=== PATIENT | female | born 1970 | race Caucasian/White ===

== ENCOUNTER 2021-08-06 10:45 | Inpatient (IN) ==
[~2021-08-06 10:45] MED LIST: ASPIRIN 325 MG TABLET PO ONE; DEXTROSE 5% NACL 0.45% 1,000 ML IV SCH; DIAZEPAM 5 MG TABLET PO ONE; MAGNESIUM SULF RIDER 2 GM/50 ML PREMIX IV PRN; diphenhydrAMINE CAP 50 MG CAPSULE PO ONE
[2021-08-06 11:48] LABS: Basophils # 0.1 10*3/uL (0.0-0.2); Basophils % 0.9 % (0.0-0.8); Eosinophils # 0.2 10*3/uL (0.0-0.87); Eosinophils % 3.4 % (0.00-10.9); Hematocrit 40.1 VOL% (35.7-47.0); Hemoglobin 12.4 GM/DL (12.0-16.0); Immature Granulocytes % 0.2 %; Immature Granulocytes Absolute 0.01 #; Lymphocytes # 2.1 10*3/uL (1.4-4.0); Lymphocytes % 38.2 % (21.3-54.2); Mean Corpuscular HGB Conc 30.9 GM/DL (32-36); Mean Corpuscular Volume 79.2 FL (87-102); Mean Platelet Volume 10.2 FL (9.6-12.0); Monocytes % 8.6 % (1.7-12.7); Neutrophils % 48.7 % (38.7-73.9); Platelet Count 218 T/CUMM (130-400); Red Blood Count 5.06 MC/CUMM (3.8-5.5); Red Cell Distribution Width 15.6 % (9.3-17.3); White Blood Count 5.6 T/CUMM (4-12)
[2021-08-06] MEDS ORDERED: HEPARIN/NACL 0.9% 2 UNITS/ML 2,000 UNIT/1,000 ML BAG IV ONE (12:01)
[2021-08-06] MEDS ORDERED: LIDOCAINE 1% 20 ML VIAL ONE (12:01)
[2021-08-06 12:02] LABS: Calcium 8.6 MG/DL (8.5-10.1); Osmolality,Calculated 276.7 MOS/KG (273-304); Potassium 3.2 MMOL/L (3.5-5.1)
[2021-08-06] MEDS ORDERED: POTASSIUM CHLORIDE RIDER 0 MEQ/0 ML PREMIX IV ONE (12:11)
[2021-08-06] MEDS ORDERED: DIAZEPAM 5 MG TABLET ONE (12:11)
[2021-08-06] MEDS ORDERED: diphenhydrAMINE CAP 50 MG CAPSULE ONE (12:12)
[2021-08-06] MEDS ORDERED: ASPIRIN 325 MG TABLET ONE (12:12)
[2021-08-06] MEDS ORDERED: POTASSIUM CHLORIDE RIDER 10 MEQ/100 ML PREMIX IV ONE ×2 (12:14→15:11)
[2021-08-06 12:22] LABS: Platelet Estimate Adequate
[2021-08-06 12:24] LABS: Hypochromia 1+
[2021-08-06] MEDS: POTASSIUM CHLORIDE RIDER 10 MEQ/100 ML PREMIX IV PRN ×2 (12:32→15:18)
[2021-08-06] MEDS ORDERED: MIDAZOLAM 2 MG/2 ML VIAL ONE ×3 (13:18→13:59)
[2021-08-06] MEDS ORDERED: LIDOCAINE 1%/EPI INJ 20 ML VIAL ONE (13:18)
[2021-08-06] MEDS ORDERED: fentaNYL 100 MCG/2 ML VIAL ONE ×2 (13:18→13:59)
[2021-08-06] MEDS ORDERED: FUROSEMIDE 20 MG TABLET PO PRN (14:11)
[2021-08-06] MEDS ORDERED: NITROGLYCERIN SL 0.4 MG TABLET SL PRN (14:25)
[2021-08-06] MEDS ORDERED: BISACODYL 5 MG TABLET PO PRN (15:22)
[2021-08-06] MEDS ORDERED: diphenhydrAMINE CAP 25 MG CAPSULE PO PRN (16:40)
[2021-08-06] MEDS ORDERED: LORazepam 1 MG TABLET PO PRN (16:57)
[2021-08-06] MEDS: MORPHINE 2 MG/1 ML SYRINGE IV PRN ×2 (19:00→22:36)
[2021-08-06] MEDS: ASCORBIC ACID 500 MG TABLET PO SCH (20:59)
[2021-08-06] MEDS: ENOXAPARIN 100 MG/ML SYRINGE SUBCUT SCH (20:59)
[2021-08-06] MEDS: oxyCODONE/ACETAMINOPHEN 5-325 MG TABLET PO SCH (20:59)
[2021-08-06] MEDS: hydrOXYzine HCL 25 MG TABLET PO SCH (20:59)
[2021-08-06] MEDS: tiZANidine 4 MG TABLET PO SCH (20:59)
[2021-08-06] MEDS: QUEtiapine 100 MG TABLET PO SCH (20:59)
[2021-08-06] MEDS: PREGABALIN 75 MG CAPSULE PO SCH (21:00)
[2021-08-06] MEDS: rOPINIRole 1 MG TABLET PO SCH (21:00)
[2021-08-06] MEDS: DOCUSATE SODIUM 100 MG CAPSULE PO SCH (21:00)
[2021-08-06] MEDS ORDERED: METOPROLOL TARTRATE 25 MG TABLET PO SCH (21:00)
[2021-08-06] MEDS: PROPRANOLOL 40 MG TABLET PO SCH (21:00)
[2021-08-06] MEDS ORDERED: INFLUENZA VIRUS VACCINE 0.5 ML SYRINGE IM ONE (21:00)
[2021-08-06] MEDS: ZINC GLUCONATE 50 MG TABLET PO SCH (21:00)
[2021-08-06] MEDS: SERTRALINE 100 MG TABLET PO SCH (21:04)
[2021-08-06] MEDS: ATORVASTATIN 40 MG TABLET PO SCH (21:11)
[2021-08-06] MEDS: TAPENTADOL 150 MG PO SCH (21:11)
[2021-08-07] MEDS: MORPHINE 2 MG/1 ML SYRINGE IV PRN ×4 (05:34→23:25)
[2021-08-07 05:47] LABS: Basophils % 0.7 % (0.0-0.8); Eosinophils # 0.3 10*3/uL (0.0-0.87); Eosinophils % 5.4 % (0.00-10.9); Hematocrit 34.3 VOL% (35.7-47.0); Hemoglobin 10.7 GM/DL (12.0-16.0); Immature Granulocytes % 0.4 %; Immature Granulocytes Absolute 0.02 #; Lymphocytes # 2.9 10*3/uL (1.4-4.0); Lymphocytes % 52.3 % (21.3-54.2); Mean Corpuscular HGB Conc 31.2 GM/DL (32-36); Mean Platelet Volume 10.7 FL (9.6-12.0); Monocytes % 9.1 % (1.7-12.7); Neutrophils % 32.1 % (38.7-73.9); Platelet Count 178 T/CUMM (130-400); Red Blood Count 4.29 MC/CUMM (3.8-5.5); Red Cell Distribution Width 15.5 % (9.3-17.3); White Blood Count 5.6 T/CUMM (4-12)
[2021-08-07 06:13] LABS: Calcium 8.6 MG/DL (8.5-10.1); Eosinophils 1 % (0-10); Hypochromia Slight; Lymphocytes 48 % (20-55); Microcytosis Slight; Osmolality,Calculated 276.7 MOS/KG (273-304); Platelet Estimate Normal; Potassium 3.5 MMOL/L (3.5-5.1); Segmented Neutrophils 43 % (50-85); Total Cells Counted 100
[2021-08-07] MEDS ORDERED: DEXTROSE 50% 25 GM/50 ML VIAL IV PRN (08:53)
[2021-08-07] MEDS ORDERED: GLUCAGON 1 MG VIAL IM PRN (08:53)
[2021-08-07] MEDS ORDERED: ASCORBIC ACID 500 MG TABLET PO SCH (09:00)
[2021-08-07] MEDS ORDERED: DEXTROSE 10% 250 ML IV PRN (09:03)
[2021-08-07 10:05] LABS: Alanine Aminotransferase 26 U/L (13-56); Alkaline Phosphatase 116 U/L (45-117); Aspartate Amino Transferase 20 U/L (0-37); Bilirubin,Total < 0.39 MG/DL (0.20-1.00); Blood Urea Nitrogen 14 MG/DL (7-18); Calcium 8.6 MG/DL (8.5-10.1); Carbon Dioxide 28 MMOL/L (21-32); Estimated Glom Filtration Rate 106 ML/MIN; Glucose 89 MG/DL (74-106); Osmolality,Calculated 274.7 MOS/KG (273-304); Potassium 3.4 MMOL/L (3.5-5.1); Sodium 138 MMOL/L (136-145); Total Protein 6.7 G/DL (6.4-8.2)
[2021-08-07 10:39] LABS: ABG Base Excess 2.7 MMOL/L (-2.5-2.5); ABG HCO3 26.9 MMOL/L (20-26); ABG Oxygen Saturation 98.8 % (95-100); ABG PCO2 51.5 MM HG (35-48); ABG TCO2 26.2 MMOL/L (23-27); Allen Test Positive
[2021-08-07] MEDS: ENOXAPARIN 100 MG/ML SYRINGE SUBCUT SCH (10:50)
[2021-08-07] MEDS: ASCORBIC ACID 500 MG TABLET PO SCH ×2 (10:55→21:10)
[2021-08-07] MEDS: ASPIRIN CHEW 81 MG TABLET PO SCH (10:56)
[2021-08-07] MEDS: hydrOXYzine HCL 25 MG TABLET PO SCH ×3 (10:56→21:12)
[2021-08-07] MEDS: CHOLECALCIFEROL 5,000 UNIT TABLET PO SCH (10:57)
[2021-08-07] MEDS: DOCUSATE SODIUM 100 MG CAPSULE PO SCH ×2 (10:57→21:12)
[2021-08-07] MEDS: PANTOPRAZOLE 40 MG TABLET PO SCH (10:57)
[2021-08-07] MEDS: PREGABALIN 75 MG CAPSULE PO SCH ×3 (10:58→21:12)
[2021-08-07] MEDS: SERTRALINE 100 MG TABLET PO SCH ×2 (10:58→21:13)
[2021-08-07] MEDS: oxyCODONE/ACETAMINOPHEN 5-325 MG TABLET PO SCH ×2 (10:59→21:14)
[2021-08-07] MEDS: tiZANidine 4 MG TABLET PO SCH ×2 (11:00→21:12)
[2021-08-07] MEDS: TAPENTADOL 150 MG PO SCH ×2 (11:01→21:14)
[2021-08-07] MEDS: CHLORHEXIDINE 0.12% ORAL RINSE 60 ML BOTTLE SWISH/SPIT SCH ×2 (11:02→21:14)
[2021-08-07] MEDS: CHLORHEXIDINE 4% SOLN 118 ML BOTTLE TOP SCH ×2 (11:03→18:41)
[2021-08-07] MEDS ORDERED: POTASSIUM BICARB EFFERVESCENT 20 MEQ TAB.EFF PO PRN ×2 (13:47→15:39)
[2021-08-07] MEDS: IPRATROPIUM 500 MCG/2.5 ML NEB RESP TX SCH ×2 (14:16→20:27)
[2021-08-07] MEDS ORDERED: DIAZEPAM 5 MG TABLET PO ONE (16:45)
[2021-08-07] MEDS: rOPINIRole 1 MG TABLET PO SCH (21:10)
[2021-08-07] MEDS: ATORVASTATIN 40 MG TABLET PO SCH (21:11)
[2021-08-07] MEDS: PROPRANOLOL 40 MG TABLET PO SCH (21:11)
[2021-08-07] MEDS: ZINC GLUCONATE 50 MG TABLET PO SCH (21:11)
[2021-08-07] MEDS: QUEtiapine 100 MG TABLET PO SCH (21:12)
[2021-08-08] MEDS ORDERED: PAPAVERINE 60 MG/2 ML VIAL ONE (04:19)
[2021-08-08] MEDS ORDERED: VANCOMYCIN 1,000 MG VIAL ONE (04:20)
[2021-08-08] MEDS ORDERED: VANCOMYCIN 500 MG VIAL ONE (04:20)
[2021-08-08] MEDS: CHLORHEXIDINE 4% SOLN 118 ML BOTTLE TOP SCH (04:45)
[2021-08-08] MEDS ORDERED: CEFUROXIME INJ 1,500 MG in SODIUM CHLORIDE 0.9% 100 ML IV ONE (05:00)
[2021-08-08] MEDS ORDERED: DIAZEPAM 5 MG TABLET PO ONE (06:00)
[2021-08-08] MEDS ORDERED: AMINOCAPROIC ACID 5,000 MG/20 ML VIAL ONE (06:05)
[2021-08-08] MEDS ORDERED: LACTATED RINGERS 1,000 ML IV ONE (06:05)
[2021-08-08] MEDS ORDERED: VECURONIUM 10 MG VIAL IV ONE ×2 (06:05→09:16)
[2021-08-08] MEDS ORDERED: SODIUM CHLORIDE 0.9% 250 ML IV ONE (06:05)
[2021-08-08] MEDS ORDERED: SUFentanil 250 MCG/5 ML AMP ONE ×2 (06:05→07:57)
[2021-08-08] MEDS ORDERED: MIDAZOLAM 10 MG/2 ML VIAL ONE ×4 (06:05→09:16)
[2021-08-08] MEDS ORDERED: LIDOCAINE 2% 5 ML VIAL ONE ×2 (06:05→10:37)
[2021-08-08] MEDS ORDERED: SODIUM CHLORIDE 0.9% 1,000 ML IV ONE (06:05)
[2021-08-08] MEDS ORDERED: HEPARIN/NACL 0.9% 2 UNITS/ML 1,000 UNIT/500 ML BAG IV ONE (06:05)
[2021-08-08] MEDS ORDERED: MINERAL OIL/PETROLATUM OPH OINT 3.5 GM TUBE ONE (06:05)
[2021-08-08] MEDS ORDERED: CALCIUM CHLORIDE 1,000 MG/10 ML VIAL IV ONE ×2 (06:05→10:21)
[2021-08-08 07:40] LABS: ABG Base Excess 2.4 MMOL/L (-2.5-2.5); ABG HCO3 26.5 MMOL/L (20-26); ABG Oxygen Saturation 99.9 % (95-100); ABG PCO2 43.2 MM HG (35-48); ABG PH 7.409 (7.35-7.45); ABG TCO2 24.7 MMOL/L (23-27); Glucose Heart Surgery 93 MG/DL (74-106); Hematocrit Heart Surgery 31.8 PERCENT (37-47); Hemoglobin Heart Surgery 10.3 G/DL (12.0-16.0); Ionized Calcium Arterial 1.18 MMOL/L (1.21-1.46); PCO2 Patient Temp Arterial 43.2 MMHG; PH Patient Temp Arterial 7.409; Patient Temperature 37 CELCIUS; Potassium Heart/CVR 4.2 MMOL/L (3.5-5.1); Sodium Heart/CVR 140 MMOL/L (135-145)
[2021-08-08 07:45] LABS: Bilirubin,Urine Negative (Negative); Blood, Urine Negative (Negative); Calcium Oxalate Crystals,Urine Occasional /HPF (Few); Glucose,Urine (UA) Negative (Negative); Hyaline Casts,Urine 1 /LPF (0-3); Ketones,Urine Negative (Negative); Mucus,Urine Moderate /LPF (Occasional); Nitrite,Urine Negative (Negative); Protein,Urine Negative; RBC,Urine 1 /HPF (0-4); Squamous Epithelial Cell,Urine Occasional /HPF (0-10); Urine Appearance CLEAR (Clear); Urine Color Yellow (Yellow); Urine Urobilinogen < 2.0 EU/DL (<2.0)
[2021-08-08] MEDS ORDERED: SUCCINYLCHOLINE 200 MG/10 ML VIAL ONE (07:48)
[2021-08-08] MEDS ORDERED: GLYCOPYRROLATE 0.4 MG/2 ML VIAL ONE (07:48)
[2021-08-08] MEDS: IPRATROPIUM 500 MCG/2.5 ML NEB RESP TX SCH ×2 (08:07→19:28)
[2021-08-08] MEDS ORDERED: PHENYLEPHRINE 10 MG/1 ML VIAL IV ONE (08:49)
[2021-08-08] MEDS ORDERED: diphenhydrAMINE 50 MG/1 ML VIAL ONE (09:16)
[2021-08-08 09:19] LABS: Hematocrit Heart Surgery 22.2 PERCENT (37-47); Hemoglobin Heart Surgery 7.1 G/DL (12.0-16.0); PCO2 Patient Temp Venous 38.6 MM HG; PH Patient Temp Venous 7.473; PO2 Patient Temp Venous 32.3 MM HG; Potassium Heart/CVR 4.7 MMOL/L (3.5-5.1); VBG Base Excess 4.7 MEQ/L (0-4); VBG HCO3 28.4 MEQ/L (24-28); VBG Oxygen Saturation 76.5 %; VBG PCO2 44.6 MMHG (41-51); VBG PH 7.429; VBG PO2 39.8 MMHG (17-40); VBG Total CO2 27.9 MMOL/L
[2021-08-08 09:48] LABS: Hematocrit Heart Surgery 24.6 PERCENT (37-47); Hemoglobin Heart Surgery 7.9 G/DL (12.0-16.0); PCO2 Patient Temp Venous 37.7 MM HG; PH Patient Temp Venous 7.465; PO2 Patient Temp Venous 33.5 MM HG; Potassium Heart/CVR 3.9 MMOL/L (3.5-5.1); VBG Base Excess 3.5 MEQ/L (0-4); VBG HCO3 27.3 MEQ/L (24-28); VBG Oxygen Saturation 77.2 %; VBG PCO2 43.5 MMHG (41-51); VBG PH 7.421; VBG PO2 41.2 MMHG (17-40); VBG Total CO2 26.5 MMOL/L
[2021-08-08] MEDS ORDERED: FAMOTIDINE 20 MG/2 ML VIAL IV ONE (09:52)
[2021-08-08] MEDS ORDERED: DOBUTamine 500 MG/250 ML PREMIX IV ONE ×2 (10:14→11:11)
[2021-08-08] MEDS ORDERED: THROMBIN TOPICAL (RECOMBINANT) 5,000 UNIT VIAL TOP ONE (10:34)
[2021-08-08] MEDS ORDERED: methylPREDNISolone SOD SUC 1,000 MG/8 ML VIAL ONE (10:37)
[2021-08-08] MEDS ORDERED: PROTAMINE SULFATE 250 MG/25 ML VIAL IV ONE (10:37)
[2021-08-08] MEDS ORDERED: MAGNESIUM SULFATE 5 GM/10 ML VIAL IV ONE (10:37)
[2021-08-08] MEDS ORDERED: ALBUMIN 25% 25 GM/100 ML VIAL IV ONE (10:37)
[2021-08-08] MEDS ORDERED: DEXTROSE 5% KCL 20 MEQ 20 MEQ/1,000 ML BAG IV ONE (10:37)
[2021-08-08] MEDS ORDERED: MANNITOL 100 GM/500 ML BAG IV ONE (10:37)
[2021-08-08 10:38] LABS: ABG Base Excess 0.4 MMOL/L (-2.5-2.5); ABG HCO3 24.3 MMOL/L (20-26); ABG PCO2 35.9 MM HG (35-48); ABG PH 7.449 (7.35-7.45); ABG TCO2 25.4 MMOL/L (23-27); Glucose Heart Surgery 117 MG/DL (74-106); Hemoglobin Heart Surgery 8.4 G/DL (12.0-16.0); Ionized Calcium Arterial 1.46 MMOL/L (1.21-1.46); PCO2 Patient Temp Arterial 35.9 MMHG; PH Patient Temp Arterial 7.449; Patient Temperature 37 CELCIUS; Potassium Heart/CVR 3.3 MMOL/L (3.5-5.1); Sodium Heart/CVR 135 MMOL/L (135-145)
[2021-08-08] MEDS ORDERED: FUROSEMIDE 20 MG/2 ML VIAL ONE (10:38)
[2021-08-08] MEDS ORDERED: PROTAMINE SULFATE 50 MG/5 ML VIAL IV ONE (10:38)
[2021-08-08] MEDS ORDERED: SODIUM BICARBONATE 50 MEQ/50 ML VIAL IV ONE (10:38)
[2021-08-08] MEDS ORDERED: HEPARIN 10,000 UNIT/10 ML VIAL ONE (10:38)
[2021-08-08] MEDS ORDERED: ALBUMIN 5% 25.0 GM/500 ML VIAL IV ONE (10:39)
[2021-08-08] MEDS ORDERED: POTASSIUM CHLORIDE RIDER 20 MEQ/100 ML PREMIX IV ONE (10:39)
[2021-08-08] MEDS ORDERED: PHENYLEPHRINE DRIP 40 MG/250 ML PREMIX IV ONE (10:40)
[2021-08-08] MEDS ORDERED: PHENYLEPHRINE DRIP 40 MG/250 ML PREMIX IV PRN (11:16)
[2021-08-08] MEDS ORDERED: POTASSIUM CHLORIDE RIDER 20 MEQ/100 ML PREMIX IV PRN (11:16)
[2021-08-08] MEDS ORDERED: POTASSIUM CHLORIDE RIDER 10 MEQ/100 ML PREMIX IV PRN (11:16)
[2021-08-08] MEDS ORDERED: VECURONIUM 10 MG VIAL IV PRN ×2 (11:16)
[2021-08-08] MEDS ORDERED: MIDAZOLAM 10 MG/2 ML VIAL IV PRN (11:16)
[2021-08-08] MEDS ORDERED: ONDANSETRON 4 MG/2 ML VIAL IV PRN (11:16)
[2021-08-08] MEDS ORDERED: NITROPRUSSIDE 100 MG in DEXTROSE 5% 250 ML IV PRN (11:16)
[2021-08-08] MEDS ORDERED: ACETAMINOPHEN 650 MG SUPP RECTAL PRN (11:16)
[2021-08-08] MEDS ORDERED: CALCIUM CHLORIDE 1,000 MG/10 ML SYRINGE IV PRN (11:16)
[2021-08-08] MEDS ORDERED: INSULIN REGULAR 100 UNIT/ML IV ONE (11:16)
[2021-08-08] MEDS ORDERED: LACTATED RINGERS 250 ML IV PRN (11:16)
[2021-08-08] MEDS ORDERED: MAGNESIUM SULF RIDER 4 GM/100 ML PREMIX IV PRN (11:16)
[2021-08-08] MEDS ORDERED: MAGNESIUM SULF RIDER 2 GM/50 ML PREMIX IV PRN (11:16)
[2021-08-08] MEDS ORDERED: CHLORHEXIDINE 4% SOLN 118 ML BOTTLE TOP PRN (11:16)
[2021-08-08] MEDS ORDERED: INSULIN REGULAR 100 UNIT/ML IV PRN (11:16)
[2021-08-08] MEDS ORDERED: DEXTROSE 10% 25 GM/250 ML BAG IV PRN ×2 (11:24→11:25)
[2021-08-08] MEDS: SODIUM CHLORIDE 0.45% 1,000 ML IV SCH ×2 (11:25)
[2021-08-08] MEDS: DOBUTamine 500 MG/250 ML PREMIX IV SCH (11:25)
[2021-08-08] MEDS: LACTATED RINGERS 1,000 ML IV PRN ×3 (11:30→15:30)
[2021-08-08] MEDS ORDERED: NITROPRUSSIDE 50 MG/2 ML VIAL ONE (11:35)
[2021-08-08 12:31] LABS: Basophils % 0.3 % (0.0-0.8); Eosinophils # 0.1 10*3/uL (0.0-0.87); Eosinophils % 0.9 % (0.00-10.9); Hematocrit 29.6 VOL% (35.7-47.0); Hemoglobin 9.4 GM/DL (12.0-16.0); Immature Granulocytes % 0.5 %; Immature Granulocytes Absolute 0.04 #; Lymphocytes # 1.1 10*3/uL (1.4-4.0); Lymphocytes % 14.6 % (21.3-54.2); Mean Corpuscular HGB Conc 31.8 GM/DL (32-36); Mean Corpuscular Volume 77.9 FL (87-102); Mean Platelet Volume 10.7 FL (9.6-12.0); Monocytes % 4.3 % (1.7-12.7); Neutrophils % 79.4 % (38.7-73.9); Platelet Count 177 T/CUMM (130-400); Red Cell Distribution Width 15.2 % (9.3-17.3); White Blood Count 7.7 T/CUMM (4-12)
[2021-08-08 12:34] LABS: ABG Base Excess 1.8 MMOL/L (-2.5-2.5); ABG HCO3 24.4 MMOL/L (20-26); ABG Oxygen Saturation 98.2 % (95-100); ABG PH 7.513 (7.35-7.45); ABG PO2 123.3 MM HG (80-95); ABG TCO2 25.3 MMOL/L (23-27); Glucose Heart Surgery 121 MG/DL (74-106); Potassium Heart/CVR 3.6 MMOL/L (3.5-5.1)
[2021-08-08 12:43] LABS: INR 1.1
[2021-08-08] MEDS ORDERED: NITROGLYCERIN DRIP 50 MG/250 ML BOTTLE IV PRN (13:00)
[2021-08-08 13:06] LABS: Bilirubin,Total 0.4 MG/DL (0.20-1.00); Calcium 9.6 MG/DL (8.5-10.1); Osmolality,Calculated 278.4 MOS/KG (273-304); Potassium 3.7 MMOL/L (3.5-5.1); Total Protein 5.8 G/DL (6.4-8.2)
[2021-08-08] MEDS: MIDAZOLAM 2 MG/2 ML VIAL IV PRN ×2 (13:07→14:18)
[2021-08-08] MEDS: ALBUMIN 5% 12.5 GM/250 ML VIAL IV PRN ×2 (13:15→15:20)
[2021-08-08 13:20] LABS: CKMB % 5.2 %
[2021-08-08 13:23] LABS: ABG Base Excess 2.9 MMOL/L (-2.5-2.5); ABG Oxygen Saturation 98.9 % (95-100); ABG PCO2 37.7 MM HG (35-48); ABG PH 7.459 (7.35-7.45); ABG TCO2 24.4 MMOL/L (23-27); Glucose Heart Surgery 148 MG/DL (74-106); Hemoglobin Heart Surgery 9.7 G/DL (12.0-16.0); Potassium Heart/CVR 3.7 MMOL/L (3.5-5.1)
[2021-08-08 13:26] LABS: High Sensitive Troponin I* 1287.4 ng/L (0-54)
[2021-08-08] MEDS ORDERED: DEXMEDETOMIDINE 400 MCG in SODIUM CHLORIDE 0.9% 96 ML IV PRN (14:30)
[2021-08-08] MEDS: INSULIN REGULAR DRIP 100 ML IV SCH (14:47)
[2021-08-08] MEDS: MORPHINE 10 MG/1 ML VIAL IV PRN ×3 (15:20→22:15)
[2021-08-08] MEDS: SODIUM CHLORIDE 0.9% 1,000 ML IV SCH (15:43)
[2021-08-08] MEDS: PREGABALIN 75 MG CAPSULE PO SCH (15:44)
[2021-08-08] MEDS: hydrOXYzine HCL 25 MG TABLET PO SCH (15:44)
[2021-08-08] MEDS: ASPIRIN CHEW 81 MG TABLET PO SCH (15:44)
[2021-08-08] MEDS: CHLORHEXIDINE 0.12% ORAL RINSE 60 ML BOTTLE SWISH/SPIT SCH ×2 (15:44→21:56)
[2021-08-08] MEDS: oxyCODONE/ACETAMINOPHEN 5-325 MG TABLET PO SCH (15:44)
[2021-08-08] MEDS: DOCUSATE SODIUM 100 MG CAPSULE PO SCH (15:44)
[2021-08-08] MEDS: ASCORBIC ACID 500 MG TABLET PO SCH (15:45)
[2021-08-08] MEDS: PANTOPRAZOLE 40 MG TABLET PO SCH (15:45)
[2021-08-08] MEDS: SERTRALINE 100 MG TABLET PO SCH (15:45)
[2021-08-08] MEDS: TAPENTADOL 150 MG PO SCH (15:45)
[2021-08-08] MEDS: CHOLECALCIFEROL 5,000 UNIT TABLET PO SCH (15:45)
[2021-08-08] MEDS: tiZANidine 4 MG TABLET PO SCH (15:45)
[2021-08-08] MEDS ORDERED: FUROSEMIDE 40 MG/4 ML VIAL IV PRN (18:12)
[2021-08-08] MEDS: CEFUROXIME INJ 1,500 MG in SODIUM CHLORIDE 0.9% 100 ML IV SCH (18:22)
[2021-08-08 20:46] LABS: ABG Base Excess 2.2 MMOL/L (-2.5-2.5); ABG HCO3 26.4 MMOL/L (20-26); ABG Oxygen Saturation 98.6 % (95-100); ABG PH 7.392 (7.35-7.45); ABG TCO2 25.5 MMOL/L (23-27); Glucose Heart Surgery 171 MG/DL (74-106); Hematocrit Heart Surgery 25.7 PERCENT (37-47); Hemoglobin Heart Surgery 8.3 G/DL (12.0-16.0); Potassium Heart/CVR 4.6 MMOL/L (3.5-5.1)
[2021-08-08 21:24] LABS: High Sensitive Troponin I* 1966.1 ng/L (0-54)
[2021-08-08] MEDS: QUEtiapine 100 MG TABLET PO SCH (21:56)
[2021-08-08] MEDS: rOPINIRole 1 MG TABLET PO SCH (21:56)
[2021-08-08 23:16] LABS: ABG Base Excess 3.1 MMOL/L (-2.5-2.5); ABG HCO3 27.1 MMOL/L (20-26); ABG Oxygen Saturation 95.5 % (95-100); ABG PCO2 47.1 MM HG (35-48); ABG PO2 78.4 MM HG (80-95); ABG TCO2 26.6 MMOL/L (23-27); Glucose Heart Surgery 156 MG/DL (74-106); Hematocrit Heart Surgery 24.9 PERCENT (37-47); Potassium Heart/CVR 4.8 MMOL/L (3.5-5.1)
[2021-08-09] MEDS: MORPHINE 10 MG/1 ML VIAL IV PRN (02:10)
[2021-08-09 04:50] LABS: ABG Base Excess 3.6 MMOL/L (-2.5-2.5); ABG HCO3 27.6 MMOL/L (20-26); ABG Oxygen Saturation 95.6 % (95-100); ABG PCO2 46.8 MM HG (35-48); ABG PH 7.399 (7.35-7.45); ABG TCO2 27.1 MMOL/L (23-27); Glucose Heart Surgery 135 MG/DL (74-106); Hemoglobin Heart Surgery 7.7 G/DL (12.0-16.0); Potassium Heart/CVR 4.3 MMOL/L (3.5-5.1)
[2021-08-09 05:13] LABS: CKMB % 2.5 %
[2021-08-09 05:18] LABS: Alanine Aminotransferase 20 U/L (13-56); Alkaline Phosphatase 73 U/L (45-117); Aspartate Amino Transferase 32 U/L (0-37); Bilirubin,Direct < 0.100 MG/DL (0.0-0.20); Bilirubin,Total < 0.39 MG/DL (0.20-1.00); Blood Urea Nitrogen 10 MG/DL (7-18); Calcium 8.5 MG/DL (8.5-10.1); Carbon Dioxide 28 MMOL/L (21-32); Estimated Glom Filtration Rate 131 ML/MIN; Glucose 130 MG/DL (74-106); Osmolality,Calculated 277.5 MOS/KG (273-304); Potassium 4.3 MMOL/L (3.5-5.1); Sodium 139 MMOL/L (136-145); Total Protein 5.8 G/DL (6.4-8.2)
[2021-08-09 05:20] LABS: Basophils % 0.1 % (0.0-0.8); Hematocrit 24.6 VOL% (35.7-47.0); Hemoglobin 7.7 GM/DL (12.0-16.0); Immature Granulocytes % 0.5 %; Immature Granulocytes Absolute 0.07 #; Lymphocytes # 1.1 10*3/uL (1.4-4.0); Mean Corpuscular HGB Conc 31.3 GM/DL (32-36); Mean Corpuscular Volume 78.3 FL (87-102); Mean Platelet Volume 11.5 FL (9.6-12.0); Monocytes % 5.9 % (1.7-12.7); Neutrophils % 85.5 % (38.7-73.9); Platelet Count 194 T/CUMM (130-400); Red Blood Count 3.14 MC/CUMM (3.8-5.5); Red Cell Distribution Width 15.6 % (9.3-17.3); White Blood Count 13.5 T/CUMM (4-12)
[2021-08-09] MEDS: CEFUROXIME INJ 1,500 MG in SODIUM CHLORIDE 0.9% 100 ML IV SCH (06:51)
[2021-08-09 07:20] LABS: ABG Base Excess 6.2 MMOL/L (-2.5-2.5); ABG HCO3 30.1 MMOL/L (20-26); ABG PCO2 43.8 MM HG (35-48); ABG PH 7.454 (7.35-7.45); ABG PO2 76.7 MM HG (80-95); ABG TCO2 28.7 MMOL/L (23-27); Glucose Heart Surgery 132 MG/DL (74-106); Hematocrit Heart Surgery 24.8 PERCENT (37-47); Potassium Heart/CVR 3.8 MMOL/L (3.5-5.1)
[2021-08-09] MEDS: KETOROLAC 30 MG/1 ML VIAL IV SCH ×3 (07:30→18:45)
[2021-08-09] MEDS: IPRATROPIUM 500 MCG/2.5 ML NEB RESP TX SCH (07:38)
[2021-08-09] MEDS: HYDROmorphone 2 MG/1 ML VIAL IV PRN ×4 (08:55→21:12)
[2021-08-09] MEDS: CHLORHEXIDINE 0.12% ORAL RINSE 60 ML BOTTLE SWISH/SPIT SCH ×2 (09:07→21:16)
[2021-08-09] MEDS ORDERED: ALUMINUM/MAGNES/SIMETH MAX STR 30 ML UDCUP PO PRN (11:47)
[2021-08-09] MEDS ORDERED: DEXTROSE 50% 25 GM/50 ML VIAL IV PRN (11:47)
[2021-08-09] MEDS ORDERED: DEXTROSE 10% 250 ML BAG IV PRN (11:47)
[2021-08-09] MEDS ORDERED: MAGNESIUM SULF RIDER 4 GM/100 ML PREMIX IV PRN (11:47)
[2021-08-09] MEDS ORDERED: SODIUM CHLOR 0.45% KCL 20 MEQ 20 MEQ/1,000 ML BAG IV SCH (11:47)
[2021-08-09] MEDS ORDERED: ONDANSETRON 4 MG/2 ML VIAL IV PRN (11:47)
[2021-08-09] MEDS ORDERED: GLUCAGON 1 MG VIAL IM PRN ×2 (11:47)
[2021-08-09] MEDS ORDERED: MAGNESIUM HYDROXIDE SUSP 30 ML UDCUP PO PRN (11:47)
[2021-08-09] MEDS ORDERED: ACETAMINOPHEN 325 MG TABLET PO PRN (11:47)
[2021-08-09] MEDS ORDERED: MAGNESIUM SULF RIDER 2 GM/50 ML PREMIX IV PRN (11:47)
[2021-08-09] MEDS: SODIUM CHLORIDE 0.45% 1,000 ML IV SCH ×2 (13:49→13:50)
[2021-08-09] MEDS: INSULIN REGULAR DRIP 100 ML IV SCH (13:50)
[2021-08-09] MEDS: DOBUTamine 500 MG/250 ML PREMIX IV SCH (13:51)
[2021-08-09] MEDS: PREGABALIN 75 MG CAPSULE PO SCH ×2 (15:20→21:15)
[2021-08-09] MEDS: hydrOXYzine HCL 25 MG TABLET PO SCH ×2 (15:20→21:14)
[2021-08-09] MEDS: rOPINIRole 1 MG TABLET PO SCH (21:13)
[2021-08-09] MEDS: ZALEPLON 5 MG CAPSULE PO PRN (21:13)
[2021-08-09] MEDS: ATORVASTATIN 40 MG TABLET PO SCH (21:13)
[2021-08-09] MEDS: ZINC GLUCONATE 50 MG TABLET PO SCH (21:13)
[2021-08-09] MEDS: METOPROLOL TARTRATE 25 MG TABLET PO SCH (21:13)
[2021-08-09] MEDS: SERTRALINE 100 MG TABLET PO SCH (21:14)
[2021-08-09] MEDS: QUEtiapine 100 MG TABLET PO SCH (21:14)
[2021-08-09] MEDS: tiZANidine 4 MG TABLET PO SCH (21:15)
[2021-08-09] MEDS: ASCORBIC ACID 500 MG TABLET PO SCH (21:16)
[2021-08-10] MEDS: HYDROmorphone 2 MG/1 ML VIAL IV PRN ×5 (00:01→21:41)
[2021-08-10] MEDS: QUEtiapine 100 MG TABLET PO SCH ×3 (00:13→23:16)
[2021-08-10] MEDS: KETOROLAC 30 MG/1 ML VIAL IV SCH ×4 (01:35→20:07)
[2021-08-10] MEDS ORDERED: FUROSEMIDE 40 MG/4 ML VIAL IV ONE (06:00)
[2021-08-10 06:18] LABS: Basophils % 0.2 % (0.0-0.8); Eosinophils % 0.1 % (0.00-10.9); Hematocrit 25.9 VOL% (35.7-47.0); Hemoglobin 8.1 GM/DL (12.0-16.0); Immature Granulocytes % 0.8 %; Lymphocytes # 2.2 10*3/uL (1.4-4.0); Lymphocytes % 18.4 % (21.3-54.2); Mean Corpuscular HGB Conc 31.3 GM/DL (32-36); Mean Corpuscular Volume 81.2 FL (87-102); Mean Platelet Volume 12.2 FL (9.6-12.0); Neutrophils % 73.5 % (38.7-73.9); Platelet Count 186 T/CUMM (130-400); Red Blood Count 3.19 MC/CUMM (3.8-5.5); Red Cell Distribution Width 15.8 % (9.3-17.3)
[2021-08-10 07:32] LABS: Alanine Aminotransferase 24 U/L (13-56); Albumin 2.9 G/DL (3.4-5.0); Alkaline Phosphatase 75 U/L (45-117); Aspartate Amino Transferase 29 U/L (0-37); Bilirubin,Direct < 0.100 MG/DL (0.0-0.20); Bilirubin,Indirect 0.3 MG/DL (0.0-1.0); Bilirubin,Total < 0.39 MG/DL (0.20-1.00); Blood Urea Nitrogen 19 MG/DL (7-18); Calcium 8.3 MG/DL (8.5-10.1); Carbon Dioxide 31 MMOL/L (21-32); Estimated Glom Filtration Rate 108 ML/MIN; Glucose 118 MG/DL (74-106); Osmolality,Calculated 283.3 MOS/KG (273-304); Sodium 141 MMOL/L (136-145); Total Protein 6.1 G/DL (6.4-8.2)
[2021-08-10] MEDS: tiZANidine 4 MG TABLET PO SCH ×2 (09:43→21:37)
[2021-08-10] MEDS: PANTOPRAZOLE 40 MG TABLET PO SCH (09:43)
[2021-08-10] MEDS: MELOXICAM 7.5 MG TABLET PO SCH (09:43)
[2021-08-10] MEDS: SERTRALINE 100 MG TABLET PO SCH ×2 (09:44→21:39)
[2021-08-10] MEDS: METOPROLOL TARTRATE 25 MG TABLET PO SCH ×2 (09:44→21:39)
[2021-08-10] MEDS: ASCORBIC ACID 500 MG TABLET PO SCH ×2 (09:44→21:38)
[2021-08-10] MEDS: ASPIRIN CHEW 81 MG TABLET PO SCH (09:44)
[2021-08-10] MEDS: FERROUS SULFATE 325 MG TABLET PO SCH (09:44)
[2021-08-10] MEDS: hydrOXYzine HCL 25 MG TABLET PO SCH ×3 (09:44→21:39)
[2021-08-10] MEDS: DOCUSATE SODIUM 100 MG CAPSULE PO SCH (09:45)
[2021-08-10] MEDS: PREGABALIN 75 MG CAPSULE PO SCH ×3 (09:45→21:37)
[2021-08-10] MEDS: CHLORHEXIDINE 0.12% ORAL RINSE 60 ML BOTTLE SWISH/SPIT SCH ×2 (09:47→21:40)
[2021-08-10] MEDS: DICLOFENAC 1% GEL 100 GM TUBE TOP SCH (10:48)
[2021-08-10] MEDS: rOPINIRole 1 MG TABLET PO SCH (21:36)
[2021-08-10] MEDS: ZINC GLUCONATE 50 MG TABLET PO SCH (21:36)
[2021-08-10] MEDS: ATORVASTATIN 40 MG TABLET PO SCH (21:39)
[2021-08-10] MEDS: ZALEPLON 5 MG CAPSULE PO PRN (21:40)
[2021-08-11] MEDS: HYDROmorphone 2 MG/1 ML VIAL IV PRN (00:22)
[2021-08-11] MEDS: KETOROLAC 30 MG/1 ML VIAL IV SCH ×3 (02:46→16:19)
[2021-08-11 05:10] LABS: Basophils # 0.1 10*3/uL (0.0-0.2); Basophils % 0.5 % (0.0-0.8); Eosinophils # 0.2 10*3/uL (0.0-0.87); Eosinophils % 2.3 % (0.00-10.9); Hematocrit 25.2 VOL% (35.7-47.0); Hemoglobin 7.7 GM/DL (12.0-16.0); Immature Granulocytes % 1.1 %; Immature Granulocytes Absolute 0.11 #; Lymphocytes # 3.4 10*3/uL (1.4-4.0); Lymphocytes % 33.2 % (21.3-54.2); Mean Corpuscular HGB Conc 30.6 GM/DL (32-36); Mean Corpuscular Volume 82.1 FL (87-102); Mean Platelet Volume 11.7 FL (9.6-12.0); Neutrophils % 53.9 % (38.7-73.9); Platelet Count 198 T/CUMM (130-400); Red Blood Count 3.07 MC/CUMM (3.8-5.5); White Blood Count 10.2 T/CUMM (4-12)
[2021-08-11 05:36] LABS: Alanine Aminotransferase 22 U/L (13-56); Albumin 2.7 G/DL (3.4-5.0); Alkaline Phosphatase 84 U/L (45-117); Aspartate Amino Transferase 24 U/L (0-37); Bilirubin,Direct < 0.100 MG/DL (0.0-0.20); Bilirubin,Indirect 0.9 MG/DL (0.0-1.0); Blood Urea Nitrogen 24 MG/DL (7-18); Calcium 8.2 MG/DL (8.5-10.1); Carbon Dioxide 29 MMOL/L (21-32); Estimated Glom Filtration Rate 109 ML/MIN; Glucose 88 MG/DL (74-106); Osmolality,Calculated 281.4 MOS/KG (273-304); Potassium 3.8 MMOL/L (3.5-5.1); Sodium 140 MMOL/L (136-145); Total Protein 6.1 G/DL (6.4-8.2)
[2021-08-11] MEDS: METOPROLOL TARTRATE 25 MG TABLET PO SCH ×2 (09:20→22:02)
[2021-08-11] MEDS: PANTOPRAZOLE 40 MG TABLET PO SCH (09:20)
[2021-08-11] MEDS: tiZANidine 4 MG TABLET PO SCH ×2 (09:20→22:04)
[2021-08-11] MEDS: ASCORBIC ACID 500 MG TABLET PO SCH ×2 (09:21→22:02)
[2021-08-11] MEDS: SERTRALINE 100 MG TABLET PO SCH ×2 (09:21→22:03)
[2021-08-11] MEDS: FERROUS SULFATE 325 MG TABLET PO SCH (09:21)
[2021-08-11] MEDS: ASPIRIN CHEW 81 MG TABLET PO SCH (09:22)
[2021-08-11] MEDS: oxyCODONE/ACETAMINOPHEN 5-325 MG TABLET PO PRN ×3 (09:23→22:04)
[2021-08-11] MEDS: POTASSIUM CHLORIDE 20 MEQ TABLET PO PRN ×2 (09:23→13:47)
[2021-08-11] MEDS: DOCUSATE SODIUM 100 MG CAPSULE PO SCH (09:23)
[2021-08-11] MEDS: PREGABALIN 75 MG CAPSULE PO SCH ×3 (09:30→22:03)
[2021-08-11] MEDS: MELOXICAM 7.5 MG TABLET PO SCH (09:30)
[2021-08-11] MEDS: CHLORHEXIDINE 0.12% ORAL RINSE 60 ML BOTTLE SWISH/SPIT SCH ×2 (09:33→22:03)
[2021-08-11] MEDS: POLYETHYLENE GLYCOL POWDER 17 GM PACK PO SCH (09:33)
[2021-08-11] MEDS: hydrOXYzine HCL 25 MG TABLET PO SCH ×3 (09:34→22:10)
[2021-08-11] MEDS: DICLOFENAC 1% GEL 100 GM TUBE TOP SCH (09:35)
[2021-08-11] MEDS ORDERED: SODIUM CHLORIDE 0.9% 1,000 ML IV PRN (12:04)
[2021-08-11] MEDS ORDERED: FUROSEMIDE 40 MG/4 ML VIAL IV ONE ×2 (12:05→19:00)
[2021-08-11] MEDS: ZINC GLUCONATE 50 MG TABLET PO SCH (22:02)
[2021-08-11] MEDS: rOPINIRole 1 MG TABLET PO SCH (22:03)
[2021-08-11] MEDS: QUEtiapine 100 MG TABLET PO SCH (22:03)
[2021-08-11] MEDS: ATORVASTATIN 40 MG TABLET PO SCH (22:05)
[2021-08-12] MEDS: QUEtiapine 100 MG TABLET PO SCH ×3 (00:09→22:01)
[2021-08-12] MEDS: oxyCODONE/ACETAMINOPHEN 5-325 MG TABLET PO PRN ×6 (00:27→23:43)
[2021-08-12 05:01] LABS: Basophils % 0.4 % (0.0-0.8); Eosinophils # 0.4 10*3/uL (0.0-0.87); Eosinophils % 3.8 % (0.00-10.9); Hemoglobin 9.5 GM/DL (12.0-16.0); Immature Granulocytes % 0.8 %; Immature Granulocytes Absolute 0.09 #; Lymphocytes # 3.1 10*3/uL (1.4-4.0); Lymphocytes % 28.9 % (21.3-54.2); Mean Corpuscular HGB Conc 31.7 GM/DL (32-36); Mean Platelet Volume 11.5 FL (9.6-12.0); NRBC # 0.02 10*3/uL; Neutrophils % 59.1 % (38.7-73.9); Platelet Count 232 T/CUMM (130-400); Red Blood Count 3.66 MC/CUMM (3.8-5.5); Red Cell Distribution Width 15.9 % (9.3-17.3); White Blood Count 10.6 T/CUMM (4-12)
[2021-08-12 05:27] LABS: Calcium 8.3 MG/DL (8.5-10.1); Osmolality,Calculated 283.1 MOS/KG (273-304); Potassium 3.6 MMOL/L (3.5-5.1)
[2021-08-12] MEDS: METOPROLOL TARTRATE 25 MG TABLET PO SCH ×2 (09:10→21:50)
[2021-08-12] MEDS: MELOXICAM 7.5 MG TABLET PO SCH (09:10)
[2021-08-12] MEDS: DOCUSATE SODIUM 100 MG CAPSULE PO SCH (09:10)
[2021-08-12] MEDS: hydrOXYzine HCL 25 MG TABLET PO SCH ×3 (09:10→21:48)
[2021-08-12] MEDS: PANTOPRAZOLE 40 MG TABLET PO SCH (09:10)
[2021-08-12] MEDS: PREGABALIN 75 MG CAPSULE PO SCH ×3 (09:10→21:49)
[2021-08-12] MEDS: ASPIRIN CHEW 81 MG TABLET PO SCH (09:11)
[2021-08-12] MEDS: SERTRALINE 100 MG TABLET PO SCH ×2 (09:11→21:49)
[2021-08-12] MEDS: ASCORBIC ACID 500 MG TABLET PO SCH ×2 (09:11→21:50)
[2021-08-12] MEDS: tiZANidine 4 MG TABLET PO SCH ×2 (09:11→21:49)
[2021-08-12] MEDS: FERROUS SULFATE 325 MG TABLET PO SCH (09:11)
[2021-08-12] MEDS: POLYETHYLENE GLYCOL POWDER 17 GM PACK PO SCH (09:12)
[2021-08-12] MEDS: POTASSIUM CHLORIDE 20 MEQ TABLET PO PRN (09:12)
[2021-08-12] MEDS: DICLOFENAC 1% GEL 100 GM TUBE TOP SCH (09:22)
[2021-08-12] MEDS: CHLORHEXIDINE 0.12% ORAL RINSE 60 ML BOTTLE SWISH/SPIT SCH ×2 (09:22→21:50)
[2021-08-12] MEDS: ZINC GLUCONATE 50 MG TABLET PO SCH (21:48)
[2021-08-12] MEDS: ATORVASTATIN 40 MG TABLET PO SCH (21:49)
[2021-08-12] MEDS: rOPINIRole 1 MG TABLET PO SCH (21:49)
[2021-08-13] MEDS: oxyCODONE/ACETAMINOPHEN 5-325 MG TABLET PO PRN ×4 (04:17→21:28)
[2021-08-13 04:41] LABS: Basophils % 0.3 % (0.0-0.8); Eosinophils # 0.6 10*3/uL (0.0-0.87); Eosinophils % 5.9 % (0.00-10.9); Hematocrit 28.6 VOL% (35.7-47.0); Immature Granulocytes % 1.1 %; Immature Granulocytes Absolute 0.11 #; Lymphocytes # 3.1 10*3/uL (1.4-4.0); Lymphocytes % 31.3 % (21.3-54.2); Mean Corpuscular HGB Conc 31.5 GM/DL (32-36); Mean Corpuscular Volume 82.4 FL (87-102); Mean Platelet Volume 10.9 FL (9.6-12.0); Monocytes % 6.3 % (1.7-12.7); Neutrophils % 55.1 % (38.7-73.9); Platelet Count 253 T/CUMM (130-400); Red Blood Count 3.47 MC/CUMM (3.8-5.5); Red Cell Distribution Width 15.9 % (9.3-17.3); White Blood Count 9.8 T/CUMM (4-12)
[2021-08-13 05:12] LABS: Alanine Aminotransferase 23 U/L (13-56); Albumin 2.5 G/DL (3.4-5.0); Alkaline Phosphatase 92 U/L (45-117); Aspartate Amino Transferase 18 U/L (0-37); Bilirubin,Indirect 0.3 MG/DL (0.0-1.0); Blood Urea Nitrogen 13 MG/DL (7-18); Calcium 8.6 MG/DL (8.5-10.1); Carbon Dioxide 30 MMOL/L (21-32); Estimated Glom Filtration Rate 140 ML/MIN; Glucose 81 MG/DL (74-106); Osmolality,Calculated 279.3 MOS/KG (273-304); Potassium 4.2 MMOL/L (3.5-5.1); Sodium 141 MMOL/L (136-145); Total Protein 5.9 G/DL (6.4-8.2)
[2021-08-13] MEDS: METOPROLOL TARTRATE 25 MG TABLET PO SCH ×2 (08:34→21:29)
[2021-08-13] MEDS: POLYETHYLENE GLYCOL POWDER 17 GM PACK PO SCH (08:34)
[2021-08-13] MEDS: SERTRALINE 100 MG TABLET PO SCH ×2 (08:34→21:28)
[2021-08-13] MEDS: PREGABALIN 75 MG CAPSULE PO SCH ×3 (08:34→21:28)
[2021-08-13] MEDS: FERROUS SULFATE 325 MG TABLET PO SCH (08:35)
[2021-08-13] MEDS: DOCUSATE SODIUM 100 MG CAPSULE PO SCH (08:35)
[2021-08-13] MEDS: ASPIRIN CHEW 81 MG TABLET PO SCH (08:35)
[2021-08-13] MEDS: MELOXICAM 7.5 MG TABLET PO SCH (08:35)
[2021-08-13] MEDS: PANTOPRAZOLE 40 MG TABLET PO SCH (08:35)
[2021-08-13] MEDS: ASCORBIC ACID 500 MG TABLET PO SCH ×2 (08:35→21:28)
[2021-08-13] MEDS: hydrOXYzine HCL 25 MG TABLET PO SCH ×3 (08:35→21:29)
[2021-08-13] MEDS: tiZANidine 4 MG TABLET PO SCH ×2 (08:36→21:29)
[2021-08-13] MEDS: DICLOFENAC 1% GEL 100 GM TUBE TOP SCH (08:39)
[2021-08-13] MEDS: CHLORHEXIDINE 0.12% ORAL RINSE 60 ML BOTTLE SWISH/SPIT SCH ×2 (08:40→21:32)
[2021-08-13] MEDS ORDERED: (Semaglutide [Ozempic] 0.25 mg or 0.5 mg(2 mg/1.5 mL) Pen Injecto SUBCUT SCH (09:00)
[2021-08-13] MEDS: ATORVASTATIN 40 MG TABLET PO SCH (21:27)
[2021-08-13] MEDS: ZINC GLUCONATE 50 MG TABLET PO SCH (21:27)
[2021-08-13] MEDS: rOPINIRole 1 MG TABLET PO SCH (21:28)
[2021-08-13] MEDS: QUEtiapine 100 MG TABLET PO SCH (21:29)
[2021-08-13] MEDS: ZALEPLON 5 MG CAPSULE PO PRN (21:29)
[2021-08-14] MEDS: oxyCODONE/ACETAMINOPHEN 5-325 MG TABLET PO PRN ×3 (00:45→08:47)
[2021-08-14 06:29] LABS: Basophils % 0.5 % (0.0-0.8); Eosinophils # 0.6 10*3/uL (0.0-0.87); Eosinophils % 6.8 % (0.00-10.9); Hematocrit 29.3 VOL% (35.7-47.0); Hemoglobin 8.9 GM/DL (12.0-16.0); Immature Granulocytes % 1.5 %; Immature Granulocytes Absolute 0.12 #; Lymphocytes # 2.8 10*3/uL (1.4-4.0); Lymphocytes % 34.6 % (21.3-54.2); Mean Corpuscular HGB Conc 30.4 GM/DL (32-36); Mean Corpuscular Volume 84.2 FL (87-102); Mean Platelet Volume 11.5 FL (9.6-12.0); Neutrophils % 49.6 % (38.7-73.9); Platelet Count 285 T/CUMM (130-400); Red Blood Count 3.48 MC/CUMM (3.8-5.5); Red Cell Distribution Width 16.1 % (9.3-17.3); White Blood Count 8.2 T/CUMM (4-12)
[2021-08-14 06:49] LABS: Alanine Aminotransferase 20 U/L (13-56); Albumin 2.6 G/DL (3.4-5.0); Alkaline Phosphatase 99 U/L (45-117); Aspartate Amino Transferase 15 U/L (0-37); Bilirubin,Direct < 0.100 MG/DL (0.0-0.20); Bilirubin,Total < 0.39 MG/DL (0.20-1.00); Blood Urea Nitrogen 12 MG/DL (7-18); Calcium 8.7 MG/DL (8.5-10.1); Carbon Dioxide 30 MMOL/L (21-32); Estimated Glom Filtration Rate 131 ML/MIN; Glucose 77 MG/DL (74-106); Osmolality,Calculated 277.4 MOS/KG (273-304); Potassium 4.1 MMOL/L (3.5-5.1); Sodium 140 MMOL/L (136-145); Total Protein 6.2 G/DL (6.4-8.2)
[2021-08-14 06:50] LABS: Bilirubin,Indirect 0.3 MG/DL (0.0-1.0)
[2021-08-14] MEDS: MELOXICAM 7.5 MG TABLET PO SCH (08:44)
[2021-08-14] MEDS: POLYETHYLENE GLYCOL POWDER 17 GM PACK PO SCH (08:44)
[2021-08-14] MEDS: PREGABALIN 75 MG CAPSULE PO SCH (08:45)
[2021-08-14] MEDS: ASCORBIC ACID 500 MG TABLET PO SCH (08:45)
[2021-08-14] MEDS: SERTRALINE 100 MG TABLET PO SCH (08:45)
[2021-08-14] MEDS: FERROUS SULFATE 325 MG TABLET PO SCH (08:45)
[2021-08-14] MEDS: tiZANidine 4 MG TABLET PO SCH (08:45)
[2021-08-14] MEDS: PANTOPRAZOLE 40 MG TABLET PO SCH (08:46)
[2021-08-14] MEDS: DOCUSATE SODIUM 100 MG CAPSULE PO SCH (08:46)
[2021-08-14] MEDS: hydrOXYzine HCL 25 MG TABLET PO SCH (08:46)
[2021-08-14] MEDS: METOPROLOL TARTRATE 25 MG TABLET PO SCH (08:46)
[2021-08-14] MEDS: ASPIRIN CHEW 81 MG TABLET PO SCH (08:46)
[2021-08-14] MEDS: DICLOFENAC 1% GEL 100 GM TUBE TOP SCH (08:47)
[2021-08-14] MEDS: CHLORHEXIDINE 0.12% ORAL RINSE 60 ML BOTTLE SWISH/SPIT SCH (08:47)
[2021-08-14 09:25] VITALS: BP 133/75
== END 2021-08-14 12:30 | disposition home health service (06) | DRG 234 ==
LOC: N.CL 10:45 → N.TELEN 16:04 → N.CVR 08-08 11:08 → N.TELEN 08-08 11:16 → N.CVR 08-08 11:17 → N.ICU 08-09 15:52 → N.TELES 08-09 18:10
PROVIDERS: ADMIT Internal Medicine Interventional Cardiology; ATTEND Internal Medicine Interventional Cardiology